=== PATIENT | male | born 1975 | race Two or more races ===

== ENCOUNTER 2016-10-17 19:40 | Emergency (ER) | payer BC ==
[2016-10-17 20:42] VITALS: TEMP 98.7; BMI 29.0
[2016-10-17 20:57] LABS: AUTOMATED BASOPHIL 0.7 % (0-2); AUTOMATED EOSINOPHIL 1.9 % (0-5); AUTOMATED LYMPH 27.6 % (17-44); AUTOMATED MONOCYTE 8.9 % (3-10); AUTOMATED NEUTROPHIL 60.9 % (45-76); MPV 9.4 fL (7.4-10.4)
[2016-10-17 21:10] LABS: PARTIAL THROMB. TIME 25.9 SEC (22-35)
[2016-10-17 21:14] LABS: BLOOD UREA NITROGEN 18 MG/DL (9-20); CALCIUM 8.9 MG/DL (8.4-10.2); CALCULATED OSMOLALITY 273 MOs/Kg (270-290); CHLORIDE 108 mEq/L (98-107); GLUCOSE 95 mg/dL (70-99); SODIUM LEVEL 141 mEq/L (137-146); TOTAL PROTEIN 7.2 G/DL (6.3-8.2)
--- NOTE | 2016-10-17 23:10 | DIRPT ---
CLINICAL DATA: Acute onset of left-sided chest pain. Initial encounter. EXAM: PORTABLE CHEST 1 VIEW COMPARISON: Chest radiograph performed 07/27/2015 FINDINGS: The lungs are well-aerated. Pulmonary vascularity is at the upper limits of normal. There is no evidence of focal opacification, pleural effusion or pneumothorax. The cardiomediastinal silhouette is within normal limits. No acute osseous abnormalities are seen. IMPRESSION: No acute cardiopulmonary process seen. Electronically Signed By: Epifanio Harp M.D. On: 10/17/2016 23:07
--- NOTE | 2016-10-17 23:50 | EDPRACDOC ---
- General Information Stated Complaint: CHECK BLOOD Time Seen by Provider: 10/17/16 22:39 Information Source: Patient Mode of Arrival: Car Home Medications: Home Medications No Home Medications 10/17/16 Allergies/Adverse Reactions: Allergies Allergy/AdvReac Type Severity Reaction Status Date / Time No Known Allergies Allergy Verified 07/27/15 12:12 - History of Present Illness Onset: today HPI: FAMILY IS TRANSLATING; EPIGASTRIC PAIN FOR 1 WEEK. PAIN UNDER LEFT CHEST FOR 10 MIN EARLIER TODAY. NONE NOW. SEEN AT [facility] AND SENT HERE FOR BLOOD TEST. NO CP HERE; NO SHOB; NO CARDIAC RISK FACTORS. Chest Pain Location: Reports: Epigastric Pain Radiation: Reports: None Symptoms Occur: Reports: Gradually Cardiac Risk Factors: Reports: None Cardiac History of: Reports: None PE Risk Factors: Reports: None Medications within 24 Hours: Reports: None Prehospital Care: Reports: None Pain Came On: Reports: No Pain Pain Description: Reports: None Pain Severity: None Pain Worsens With: Reports: Nothing Pain Improves With: Reports: Nothing Associated Signs and Symptoms: Reports: None ED Past Medical History - History Reviewed Yes Nurses notes reviewed and agree except as marked - Patient Medical History Psychological History: Denies: Depression Systemic History: Denies: Cancer - Social Medical History Smoking Status: Never smoker EDM Review of Systems - Review of Systems ROS Negative Except as Marked: Yes All systems reviewed and were negative except as marked - Physical Exam Constitutional: Alert (Awake), No apparent distress Oriented to: Time, Person, Place Last recorded Vital Signs: Last Vital Signs Temp 98.7 F 10/17/16 20:39 Pulse 73 10/17/16 20:39 Resp 20 10/17/16 20:39 BP 111/69 10/17/16 20:39 Pulse Ox 97 10/17/16 20:39 Oxygen Pulse Oxygen Saturation 97 O2 Device Room Air Oxygen Flow Rate Fraction of Inspired Oxygen ( FIO2) - HEENT Head: Normal ( normocephalic) Eye Exam: Normal (PERRL, EOMI, Sclera white) Oropharynx: Normal (Pharynx:Moist without exudate,Gums-no swelling) Tympanic Membrane: Normal ENT EAC: Normal TMJ: Normal Nose: No Symptoms Reported (septum midline) Neck: Normal (FROM, trachea at midline) - Respiratory/Cardiovascular Respiratory: Normal - CTA (BBS clear to auscultation without adventitious sounds ) Cardiovascular: Normal (RRR without murmur, gallop or rub) - GI Auscultation: Normal (NABS) Palpation: Normal (Soft,No rebound or guarding, non distended) Tenderness: Non tender Acuna's Sign: Negative - Musculoskeletal Back: Normal (Non-Tender) Extremities: Normal (Normal tone, Pulses 2+ No cyanosis or edema, FROM) - Integumentary Skin: Normal, Warm, Dry Lymphatics: Normal (no adenopathy) - Neurologic Memory Impaired: Normal Motor Function: Normal (Normal tone, Pulses 2+ No cyanosis or edema, FROM) Cranial Nerve: Normal (CN II-X11 intact sensation, strength 5/5) Cerebellar: Normal Mood Description: Normal Perception: Normal - Action Patient received Aspirin within last 24 hours?: No ASA given in the ED: No Patient received Beta Ramon within last 24hrs: No - Results 10/17/16 20:46 10/17/16 20:46 WBC 6.0 xk/uL (3.8-10.8) 10/17/16 20:46 RBC 4.31 xM/uL (4.70-6.10) L 10/17/16 20:46 Hgb 13.9 g/dL (14.0-18.0) L 10/17/16 20:46 Hct 40.2 % (42-52) L 10/17/16 20:46 MCV 93 fL (80-94) 10/17/16 20:46 MCH 32.3 pg (27-32) H 10/17/16 20:46 MCHC 34.7 g/dl (33-36) 10/17/16 20:46 RDW 13.2 % (11.5-14.5) 10/17/16 20:46 Plt Count 104 xk/uL (130-400) L 10/17/16 20:46 MPV 9.4 fL (7.4-10.4) 10/17/16 20:46 Neut % (Auto) 60.9 % (45-76) 10/17/16 20:46 Lymph % (Auto) 27.6 % (17-44) 10/17/16 20:46 [place] % (Auto) 8.9 % (3-10) 10/17/16 20:46 Eos % (Auto) 1.9 % (0-5) 10/17/16 20:46 Baso % (Auto) 0.7 % (0-2) 10/17/16 20:46 Absolute Neuts (auto) 3.60 xk/uL (1.7-8.2) 10/17/16 20:46 Absolute Lymphs (auto) 1.62 xk/uL (0.65-4.75) 10/17/16 20:46 PT 10.7 SEC (9.2-11.2) 10/17/16 20:46 INR 1.0 10/17/16 20:46 APTT 25.9 SEC (22-35) 10/17/16 20:46 Sodium 141 mEq/L (137-146) 10/17/16 20:46 Potassium 3.9 mEq/L (3.5-5.1) 10/17/16 20:46 Chloride 108 mEq/L (98-107) H 10/17/16 20:46 Carbon Dioxide 21 mMOL/L (22-33) L 10/17/16 20:46 Anion Gap 16 mEq/L (8-16) 10/17/16 20:46 BUN 18 MG/DL (9-20) 10/17/16 20:46 Creatinine 0.80 MG/DL (0.66-1.25) 10/17/16 20:46 Estimated GFR (MDRD) > 60 mL/min (>=60) 10/17/16 20:46 Glucose 95 mg/dL (70-99) 10/17/16 20:46 Calculated Osmolality 273 MOs/Kg (270-290) 10/17/16 20:46 Calcium 8.9 MG/DL (8.4-10.2) 10/17/16 20:46 Total Bilirubin 0.5 MG/DL (0.2-1.3) 10/17/16 20:46 AST 32 IU/L (17-59) 10/17/16 20:46 ALT 29 IU/L (21-72) 10/17/16 20:46 Alkaline Phosphatase 77 IU/L (38-126) 10/17/16 20:46 Troponin I < 0.01 ng/mL (<.04) 10/17/16 20:46 Edu-[id number]-Qclaytdhpak Pept 32 pg/mL (0-450) 10/17/16 20:46 Total Protein 7.2 G/DL (6.3-8.2) 10/17/16 20:46 Albumin 4.3 G/DL (3.5-5.0) 10/17/16 20:46 Lab Results 10/17/16 10/17/16 10/17/16 20:46 20:46 20:46 WBC 6.0 RBC 4.31 L Hgb 13.9 L Hct 40.2 L MCV 93 MCH 32.3 H MCHC 34.7 RDW 13.2 Plt Count 104 L MPV 9.4 Neut % (Auto) 60.9 Lymph % (Auto) 27.6 [place] % (Auto) 8.9 Eos % (Auto) 1.9 Baso % (Auto) 0.7 Absolute Neuts (auto) 3.60 Absolute Lymphs (auto) 1.62 PT 10.7 INR 1.0 APTT 25.9 Sodium 141 Potassium 3.9 Chloride 108 H Carbon Dioxide 21 L Anion Gap 16 BUN 18 Creatinine 0.80 Estimated GFR (MDRD) > 60 Glucose 95 Calculated Osmolality 273 Calcium 8.9 Total Bilirubin 0.5 AST 32 ALT 29 Alkaline Phosphatase 77 Troponin I < 0.01 Hnt-K-Oeehvvrtaaa Pept 32 Total Protein 7.2 Albumin 4.3 Laboratory Results - last 24 hr 10/17/16 10/17/16 10/17/16 20:46 20:46 20:46 WBC 6.0 RBC 4.31 L Hgb 13.9 L Hct 40.2 L MCV 93 MCH 32.3 H MCHC 34.7 RDW 13.2 Plt Count 104 L MPV 9.4 Neut % (Auto) 60.9 Lymph % (Auto) 27.6 [place] % (Auto) 8.9 Eos % (Auto) 1.9 Baso % (Auto) 0.7 Absolute Neuts (auto) 3.60 Absolute Lymphs (auto) 1.62 PT 10.7 INR 1.0 APTT 25.9 Sodium 141 Potassium 3.9 Chloride 108 H Carbon Dioxide 21 L Anion Gap 16 BUN 18 Creatinine 0.80 Estimated GFR (MDRD) > 60 Glucose 95 Calculated Osmolality 273 Calcium 8.9 Total Bilirubin 0.5 AST 32 ALT 29 Alkaline Phosphatase 77 Troponin I < 0.01 Eqy-E-Ybpxaaolvtu Pept 32 Total Protein 7.2 Albumin 4.3 Laboratory Results 10/17/16 20:46 10/17/16 20:46 - EKG EKG #1 Dittmer: Normal Rhythm: NSR Block: None Hypertrophy: None ST: Normal - Additional Information PT REFUSES TO WAIT FOR SECOND TROPONIN; RISKS/BENEFITS REVIEWED. Decision Time to Discharge: 23:49 - Departure Yes I personally saw and evaluated the patient. Disposition: AMA Condition: Good Final Diagnosis: CHEST PAIN Instructions: Chest Pain (ED) Education/Counseling Given To: Patient, Family Member Education/Counseling Given Regarding: Diagnosis, Treatment, Prognosis Referrals: None,No Provider [Primary Care Provider] - One Week Gareth Briseno MD [Staff Physician] - One Week Prescriptions: No Action No Home Medications 0 NA DIR #0 info Additional Instructions: TAKE AN ASPIRIN DAILY. CONTACT DR. BRISENO FOR APPT [place]
[2016-10-18 00:06] VITALS: BP 114/69; PULSE 68
== END 2016-10-17 23:55 | disposition home or self-care (01) ==
LOC: ED 19:40
DX: R07.9 Chest pain, unspecified (principal); Z53.29 Procedure and treatment not carried out because of patient's decision for other reasons
CPT/HCPCS: 36415; 71010; 80053; 83880; 84484; 85025; 85610; 85730; 93005; 99283